=== PATIENT | female | born 1940 | race African-American/Black ===

== ENCOUNTER 2018-07-26 13:38 | Inpatient (IN) | payer OTHER ==
[~2018-07-26] VITALS: Ht 167.6 cm; Wt 104.3 kg
[2018-07-26 14:30] VITALS: Ht 167.6 cm; Wt 104.3 kg
[2018-07-26 14:52] LABS: BASOPHIL % 1.2 % (0-2); PLATELET COUNT 183 x10^3mcL (130-400)
[2018-07-26 14:58] LABS: RED CELL DISTRIBUTION WIDTH 15.8 % (11.5-14.5)
[2018-07-26 15:07] LABS: ALKALINE PHOSPHATASE 68 U/L (46-116); ALT/SGPT 13 U/L (14-59); AST/SGOT 13 U/L (15-37); BILIRUBIN TOTAL 0.4 mg/dL (0.20-1.00); CALCIUM 10.2 mg/dL (8.5-10.1); CARBON DIOXIDE 27.3 mmol/L (21-32); CHLORIDE SERUM 95 mmol/L (98-107); GLUCOSE SERUM 298 mg/dL (74-106); POTASSIUM SERUM 3.1 mmol/L (3.5-5.1); SODIUM SERUM 134 mmol/L (136-145); TOTAL PROTEIN, SERUM 7.5 g/dL (6.4-8.2)
[2018-07-26] MEDS ORDERED: ALLOPURINOL100 MG PO (16:55)
[2018-07-26] MEDS ORDERED: AMITRIPTYLINE H25 MG PO (16:55)
[2018-07-26] MEDS ORDERED: ALPHAGAN P5 M1 OU (16:55)
[2018-07-26] MEDS ORDERED: ASPIR 8181 MG PO (16:56)
[2018-07-26] MEDS ORDERED: AURYXIA1 GM PO (16:56)
[2018-07-26] MEDS ORDERED: ARICEPT10 MG PO (16:56)
[2018-07-26] MEDS ORDERED: LASIX40 MG PO (16:56)
[2018-07-26] MEDS ORDERED: CALCITRIOL0.25 MCG PO (16:56)
[2018-07-26] MEDS ORDERED: METOLAZONE10 M1 PO (16:57)
[2018-07-26] MEDS ORDERED: LYRICA75 M1 PO (16:57)
[2018-07-26] MEDS ORDERED: LEVEMIR100 U/M1 SC (16:57)
[2018-07-26] MEDS ORDERED: METOPROLOL SUCC25 M2 PO (16:58)
[2018-07-26] MEDS ORDERED: OMEPRAZOLE20 M4 PO (16:58)
[2018-07-26] MEDS ORDERED: TRAZODONE50 M1 PO (16:59)
[2018-07-26] MEDS ORDERED: SENSIPAR30 M1 PO (16:59)
[2018-07-26] MEDS ORDERED: SIMVASTATIN10 M1 PO (16:59)
[2018-07-26 17:06] LABS: PHOSPHOROUS 3.3 mg/dL (2.5-4.9)
[2018-07-26 17:07] LABS: CHOLESTEROL/HDL RATIO 4.8
[2018-07-26 18:33] VITALS: BP 129/57
[2018-07-26 20:50] VITALS: BP 107/68
[2018-07-27 06:22] VITALS: BP 149/57
[2018-07-27 08:17] LABS: BASOPHIL % 1.9 % (0-2); PLATELET COUNT 187 x10^3mcL (130-400)
[2018-07-27 08:18] LABS: RED CELL DISTRIBUTION WIDTH 15.8 % (11.5-14.5)
[2018-07-27 08:19] VITALS: BP 145/61
[2018-07-27 09:01] LABS: CALCIUM 10.3 mg/dL (8.5-10.1); CHLORIDE SERUM 101 mmol/L (98-107); CREATININE SERUM 2.6 mg/dL (0.6-1.0); GLUCOSE SERUM 109 mg/dL (74-106); MAGNESIUM 2.1 mg/dL (1.8-2.4); PHOSPHOROUS 3.8 mg/dL (2.5-4.9); POTASSIUM SERUM 3.9 mmol/L (3.5-5.1); SODIUM SERUM 137 mmol/L (136-145)
[2018-07-27 12:29] VITALS: BP 127/47
[2018-07-27 15:10] LABS: microscopic required? NO
[2018-07-27 15:15] LABS: UA SPECIFIC GRAVITY <=1.005 (1.005-1.035); urine erythrocyte NEGATIVE (NEGATIVE)
[2018-07-27 15:44] LABS: AMPHETAMINE QUAL UR NONE DETECTED (See below)
[2018-07-27 15:54] VITALS: BP 139/49
[2018-07-27 21:44] VITALS: BP 137/49
[2018-07-28 06:05] VITALS: BP 153/55
[2018-07-28 06:24] LABS: BASOPHIL % 0.5 % (0-2); PLATELET COUNT 191 x10^3mcL (130-400)
[2018-07-28 06:56] LABS: CALCIUM 10.4 mg/dL (8.5-10.1); CARBON DIOXIDE 24.2 mmol/L (21-32); CHLORIDE SERUM 103 mmol/L (98-107); CREATININE SERUM 1.9 mg/dL (0.6-1.0); GLUCOSE SERUM 150 mg/dL (74-106); MAGNESIUM 1.9 mg/dL (1.8-2.4); PHOSPHOROUS 2.6 mg/dL (2.5-4.9); POTASSIUM SERUM 3.9 mmol/L (3.5-5.1); SODIUM SERUM 139 mmol/L (136-145)
[2018-07-28 07:33] LABS: RED CELL DISTRIBUTION WIDTH 15.9 % (11.5-14.5)
[2018-07-28 10:14] VITALS: BP 130/44
[2018-07-28 17:51] VITALS: BP 143/71
[2018-07-28 20:46] VITALS: BP 114/59
[2018-07-29 05:40] VITALS: BP 103/73
[2018-07-29 06:34] LABS: CALCIUM 10.3 mg/dL (8.5-10.1); CARBON DIOXIDE 23.1 mmol/L (21-32); CHLORIDE SERUM 106 mmol/L (98-107); CREATININE SERUM 1.8 mg/dL (0.6-1.0); GLUCOSE SERUM 166 mg/dL (74-106); SODIUM SERUM 140 mmol/L (136-145)
[2018-07-29 07:49] LABS: BASOPHIL % 0.3 % (0-2); PLATELET COUNT 196 x10^3mcL (130-400); RED CELL DISTRIBUTION WIDTH 16.1 % (11.5-14.5)
[2018-07-29 08:01] VITALS: BP 121/40
[2018-07-29 12:21] VITALS: BP 118/59
[2018-07-29 16:53] VITALS: BP 140/49
[2018-07-29 21:09] VITALS: BP 151/58
[2018-07-30 05:37] VITALS: BP 157/69
[2018-07-30 06:45] LABS: CALCIUM 10.6 mg/dL (8.5-10.1); CARBON DIOXIDE 22.1 mmol/L (21-32); CHLORIDE SERUM 109 mmol/L (98-107); CREATININE SERUM 1.6 mg/dL (0.6-1.0); GLUCOSE SERUM 154 mg/dL (74-106); POTASSIUM SERUM 4.4 mmol/L (3.5-5.1); SODIUM SERUM 142 mmol/L (136-145)
[2018-07-30 08:57] VITALS: BP 160/45
[2018-07-30 17:22] VITALS: BP 152/57
[2018-07-30 21:01] VITALS: BP 132/51
[2018-07-31 05:53] VITALS: BP 145/60
[2018-07-31 06:32] LABS: BASOPHIL % 0.5 % (0-2); PLATELET COUNT 198 x10^3mcL (130-400)
[2018-07-31 06:44] LABS: CALCIUM 11.1 mg/dL (8.5-10.1); CARBON DIOXIDE 24.3 mmol/L (21-32); CHLORIDE SERUM 109 mmol/L (98-107); CREATININE SERUM 1.7 mg/dL (0.6-1.0); GLUCOSE SERUM 150 mg/dL (74-106); MAGNESIUM 1.6 mg/dL (1.8-2.4); PHOSPHOROUS 2.5 mg/dL (2.5-4.9); POTASSIUM SERUM 4.3 mmol/L (3.5-5.1); SODIUM SERUM 142 mmol/L (136-145)
[2018-07-31 06:54] LABS: RED CELL DISTRIBUTION WIDTH 15.8 % (11.5-14.5)
[2018-07-31 09:40] VITALS: BP 169/77
[2018-07-31 13:05] LABS: VITAMIN D 1,25 DIHYDROXY 16.2 pg/mL (19.9-79.3)
[2018-07-31 14:10] LABS: PTH INTACT 89 pg/mL (15-65)
[2018-07-31 14:15] VITALS: BP 147/74
[2018-07-31 17:15] VITALS: BP 149/65
[2018-07-31 21:11] VITALS: BP 152/66
[2018-08-01 05:56] VITALS: BP 163/71
[2018-08-01 06:21] LABS: BASOPHIL % 0.7 % (0-2); PLATELET COUNT 193 x10^3mcL (130-400)
[2018-08-01 06:26] LABS: CALCIUM 11.4 mg/dL (8.5-10.1); CARBON DIOXIDE 22.7 mmol/L (21-32); CHLORIDE SERUM 110 mmol/L (98-107); CREATININE SERUM 1.5 mg/dL (0.6-1.0); GLUCOSE SERUM 160 mg/dL (74-106); MAGNESIUM 1.9 mg/dL (1.8-2.4); POTASSIUM SERUM 4.4 mmol/L (3.5-5.1); SODIUM SERUM 144 mmol/L (136-145)
[2018-08-01 06:43] LABS: RED CELL DISTRIBUTION WIDTH 15.8 % (11.5-14.5)
[2018-08-01 09:55] VITALS: BP 152/59
[2018-08-01 13:06] VITALS: BP 155/76
[2018-08-01 16:52] VITALS: BP 113/74
[2018-08-01 21:56] VITALS: BP 156/72
[2018-08-02 06:26] VITALS: BP 143/47
[2018-08-02 06:43] LABS: CALCIUM 11.4 mg/dL (8.5-10.1); CARBON DIOXIDE 20.5 mmol/L (21-32); CHLORIDE SERUM 109 mmol/L (98-107); CREATININE SERUM 1.7 mg/dL (0.6-1.0); GLUCOSE SERUM 138 mg/dL (74-106); POTASSIUM SERUM 4.3 mmol/L (3.5-5.1); SODIUM SERUM 142 mmol/L (136-145)
[2018-08-02 06:50] LABS: BASOPHIL % 0.7 % (0-2); PLATELET COUNT 171 x10^3mcL (130-400)
[2018-08-02 06:57] LABS: RED CELL DISTRIBUTION WIDTH 14.8 % (11.5-14.5)
[2018-08-02 09:00] VITALS: BP 147/56
[2018-08-02 16:35] VITALS: BP 158/58
[2018-08-02 20:32] VITALS: BP 166/61
[2018-08-03 06:23] VITALS: BP 149/67
[2018-08-03 08:44] LABS: PLATELET COUNT 151 x10^3mcL (130-400); RED CELL DISTRIBUTION WIDTH 15.9 % (11.5-14.5)
[2018-08-03 08:45] LABS: BASOPHIL % 0.4 % (0-2)
[2018-08-03 08:46] LABS: CALCIUM 12.1 mg/dL (8.5-10.1); CARBON DIOXIDE 23.8 mmol/L (21-32); CHLORIDE SERUM 110 mmol/L (98-107); CREATININE SERUM 1.6 mg/dL (0.6-1.0); GLUCOSE SERUM 151 mg/dL (74-106); MAGNESIUM 1.7 mg/dL (1.8-2.4); POTASSIUM SERUM 4.3 mmol/L (3.5-5.1); SODIUM SERUM 144 mmol/L (136-145)
[2018-08-03 09:17] VITALS: BP 157/72
[2018-08-03 11:59] VITALS: BP 157/72
[2018-08-03] MEDS ORDERED: [UNRECOGNIZED DRUG - OTHER] IV (12:32)
== END 2018-08-03 13:25 | DRG 682 ==
LOC: ED 13:38 → DU 16:23 → MU 16:23 → DU 17:18 → MU 07-27 06:38 → DU 07-28 08:27 → MU 07-28 17:19
PROVIDERS: Emergency Medicine; Family Medicine; Internal Medicine Nephrology; Surgery; ADMIT Internal Medicine
PROC: B41GZZZ Fluoroscopy of Left Lower Extremity Arteries (ICD-10-PCS; 2018-07-31)
PROC: B410YZZ Fluoroscopy of Abdominal Aorta using Other Contrast (ICD-10-PCS; principal; 2018-07-31 13:00)
DX: I12.9 Hypertensive chronic kidney disease with stage 1 through stage 4 chronic kidney disease, or unspecified chronic kidney disease (principal); N17.0 Acute kidney failure with tubular necrosis; E87.1 Hypo-osmolality and hyponatremia; E44.0 Moderate protein-calorie malnutrition; I69.351 Hemiplegia and hemiparesis following cerebral infarction affecting right dominant side; N18.4 Chronic kidney disease, stage 4 (severe); N25.81 Secondary hyperparathyroidism of renal origin; E11.52 Type 2 diabetes mellitus with diabetic peripheral angiopathy with gangrene; I70.262 Atherosclerosis of native arteries of extremities with gangrene, left leg; E11.65 Type 2 diabetes mellitus with hyperglycemia; E11.621 Type 2 diabetes mellitus with foot ulcer; E11.22 Type 2 diabetes mellitus with diabetic chronic kidney disease; E11.42 Type 2 diabetes mellitus with diabetic polyneuropathy; G30.9 Alzheimer's disease, unspecified; F02.80 Dementia in other diseases classified elsewhere, unspecified severity, without behavioral disturbance, psychotic disturbance, mood disturbance, and anxiety; L97.521 Non-pressure chronic ulcer of other part of left foot limited to breakdown of skin; E83.52 Hypercalcemia; E87.6 Hypokalemia; F32.9 Major depressive disorder, single episode, unspecified; M10.9 Gout, unspecified; Z95.0 Presence of cardiac pacemaker; Z79.4 Long term (current) use of insulin; Z68.37 Body mass index [BMI] 37.0-37.9, adult; Z87.891 Personal history of nicotine dependence
CPT/HCPCS: 82652; 82962; 83880; C1760; C1769; C1887; C1894; J0132; J1200; J1644; J1815; J2001; J2060; J2270; J2430; J3475; J3480; J7030; J7042; J7070; Q0092; Q9967